=== PATIENT | male | born 1990 | race Caucasian/White ===

== ENCOUNTER 2017-08-22 18:10 | Emergency (ER) | payer OTHER ==
[~2017-08-22] VITALS: Ht 180.3 cm; Wt 127.5 kg
[2017-08-22 19:47] VITALS: BP 135/94
== END 2017-08-22 19:47 | disposition home or self-care (01) ==
LOC: ED 18:10
DX: I83.892 Varicose veins of left lower extremity with other complications (principal); S81.012A Laceration without foreign body, left knee, initial encounter; X58.XXXA Exposure to other specified factors, initial encounter; Y93.89 Activity, other specified; Y92.89 Other specified places as the place of occurrence of the external cause; Y99.8 Other external cause status